=== PATIENT | female | born 1960 | race Caucasian/White ===

== ENCOUNTER 2017-04-01 17:58 | Emergency (ER) | payer OTHER ==
[2017-04-01 18:18] VITALS: BMI 28.7
[2017-04-01 18:19] VITALS: BP 139/81; PULSE 78; RESP 18; TEMP 98; O2SAT 95
--- NOTE | 2017-04-01 19:37 | C.PDOC ---
History Of Present Illness 56 y/o female presents to ED with complaints of left shoulder pain for 3 days. Patient states pain is worse with movement and has taken 400mg of Advil twice daily with no improvement. Patient denies shoulder injury,back pain, chest pain , tingling, numbness or any other complaints at this time. Time Seen by Provider: 04/01/17 19:07 Chief Complaint (Nursing): Upper Extremity Problem/Injury History Per: Patient History/Exam Limitations: no limitations Onset/Duration Of Symptoms: Days Current Symptoms Are (Timing): Still Present Past Medical History Reviewed: Historical Data, Nursing Documentation, Vital Signs Vital Signs: Last Vital Signs Temp 98.0 F 04/01/17 18:18 Pulse 78 04/01/17 18:18 Resp 18 04/01/17 18:18 BP 139/81 04/01/17 18:18 Pulse Ox 95 04/03/17 08:41 - [facility] Procedures DX ULTRASOUND-HEAD/NECK (03/31/13) PERCUTAN NEEDLE BX OF THYROID GLAND (03/31/13) Family History: States: No Known Family Hx - Social History Hx Alcohol Use: No Hx Substance Use: No - Immunization History Hx Tetanus Toxoid Vaccination: No Hx Influenza Vaccination: No Hx Pneumococcal Vaccination: No Review Of Systems Cardiovascular: Negative for: Chest Pain Musculoskeletal: Positive for: Shoulder Pain. Negative for: Neck Pain, Back Pain Skin: Negative for: Rash Neurological: Negative for: Weakness Physical Exam - Physical Exam Appears: Other (Uncomfortable) Skin: Normal Color, Warm Head: Atraumatic, Normacephalic Oral Mucosa: Moist Neck: Normal ROM, No Midline Cervical Tenderness, No Paracervical Tenderness Extremity: No Normal ROM (left, dec rom due to pain), Tenderness (Tendernss to proximal shoulder- left ), Capillary Refill (<2 seconds), No Swelling, Other ( Decreased left shoulder ROM secondary to pain, Full ROM of elbow and wrist) Pulses: Left Radial: Normal, Right Radial: Normal Neurological/Psych: Oriented x3, Normal Speech, Normal Cognition, Normal Motor, Normal Sensation ED Course And Treatment O2 Sat by Pulse Oximetry: 95 (RA) - Other Rad left shoulder X-Ray: Interpreted by Me Progress Note: pt feeling better after toradol and sling, will d/c with med clinic f/u Reassessment Condition: Improved Disposition Counseled Patient/Family Regarding: Studies Performed, Diagnosis, Need For Followup, Rx Given - Disposition Referrals: [facility] [Outside] [facility] [Outside] Disposition: HOME/ ROUTINE Disposition Time: 21:02 Condition: STABLE Additional Instructions: Contine en la clnica mdica. Llamar para un appoimtment, usar la honda por algunos harvey solamente para la comodidad; Use paquetes fros para el hombro varias veces al da. [place] ibupforen segn lo recetado, con alimentos. Trate de refrigerator mover el hombro un poco cada da, si no lo hace, se congelar. Prescriptions: Ibuprofen [Motrin] 600 mg PO TID #30 tab Instructions: Rotator Cuff Injury (ED) Forms: Gen Discharge Inst Nepali Print Language: CHINESE - Clinical Impression Clinical Impression: Shoulder pain, left - Scribe Statement The provider has reviewed the documentation as recorded by the Scribisabel Garcia All medical record entries made by the Lisaibisabel were at my direction and personally dictated by me. I have reviewed the chart and agree that the record accurately reflects my personal performance of the history, physical exam, medical decision making, and the department course for this patient. I have also personally directed, reviewed, and agree with the discharge instructions and disposition.
--- NOTE | 2017-04-02 09:49 | RAD ---
PROCEDURE: Radiographs of the Left Shoulder HISTORY: shoulder pain COMPARISON: None. FINDINGS: BONES: Normal. No fracture. JOINTS: Normal. Glenohumeral and acromioclavicular joints preserved. No osteoarthritis. SOFT TISSUES: Normal. OTHER FINDINGS: None. IMPRESSION: No significant or acute findings to account for/ related to the clinical presentation.
== END 2017-04-01 21:12 | disposition home or self-care (01) ==
LOC: C.ER 17:58
DX: M25.512 Pain in left shoulder (principal)
CPT/HCPCS: 73030; 96372; 99283; J1885

== ENCOUNTER 2017-04-13 14:11 | Emergency (ER) | payer OTHER ==
[2017-04-13 14:11] VITALS: BMI 28.7
[2017-04-13 14:25] VITALS: TEMP 98
--- NOTE | 2017-04-13 15:07 | C.PDOC ---
History Of Present Illness 56 yo female come in for evaluation of Right shoulder pain gradually developed for past few days. Pt describes, pain as constant, aching with intermittent radiation down to Right hand and associated with tingling sensation over dorsal wrist and Right 2nd finger. Pt admits, similar sx few week ago to left shoulder. Otherwise, pt denies fever, chills, headache, dizziness, CP, SOB, dyspnea, diaphoresis, palpitation, abd. pain, N/V, denies weakness, sensory or vascular deficits to B/L UEs. Ambulate to Ed for evaluation, appears in pain. Time Seen by Provider: 04/13/17 14:34 Chief Complaint (Nursing): Upper Extremity Problem/Injury History Per: Patient History/Exam Limitations: no limitations Onset/Duration Of Symptoms: Gradual (Few days) Current Symptoms Are (Timing): Still Present Past Medical History Reviewed: Historical Data, Nursing Documentation, Vital Signs Vital Signs: Last Vital Signs Temp 98 F 04/13/17 14:24 Pulse 68 04/13/17 16:19 Resp 18 04/13/17 16:19 BP 132/78 04/13/17 16:19 Pulse Ox 99 04/13/17 16:19 - [facility] Procedures DX ULTRASOUND-HEAD/NECK (03/31/13) PERCUTAN NEEDLE BX OF THYROID GLAND (03/31/13) Family History: States: No Known Family Hx - Social History Hx Alcohol Use: No Hx Substance Use: No - Immunization History Hx Tetanus Toxoid Vaccination: No Hx Influenza Vaccination: No Hx Pneumococcal Vaccination: No Review Of Systems Except As Marked, All Systems Reviewed And Found Negative. Constitutional: Negative for: Fever, Chills Cardiovascular: Negative for: Chest Pain, Palpitations Respiratory: Negative for: Shortness of Breath Gastrointestinal: Negative for: Nausea, Vomiting, Abdominal Pain Musculoskeletal: Positive for: Shoulder Pain (Right shoulder ), Hand Pain ( Radiating pain to the right hand ) Neurological: Negative for: Weakness, Headache, Dizziness Physical Exam - Physical Exam Appears: Well, Non-toxic, No Acute Distress Skin: Normal Color, Warm, Dry, No Rash Nose: No Flaring, No Discharge Oral Mucosa: Moist Throat: No Erythema, No Drooling Neck: No Midline Cervical Tenderness, Paracervical Tenderness (mild Right tenderness over trapezium muscle with mild muscle spasm,), No Step Off Deformity , Supple, Other ((-) carotid bruits) Chest: Symmetrical, No Deformity, No Tenderness Cardiovascular: Rhythm Regular, No JVD Respiratory: No Stridor, No Wheezing Gastrointestinal/Abdominal: Soft, No Tenderness Back: No Vertebral Tenderness Extremity: Normal ROM, Tenderness (diffuse Right shoulder tenderness more over superior aspect with mod discomfort to Right shoulder abduction and extension. NO palpable deformity, no neurovascular deficits distally.), No Deformity, No Swelling Pulses: Right Radial: Normal DTR: Bicep (R): 2+, Tricep (R): 2+ Neurological/Psych: Oriented x3, Normal Speech, Normal Motor, Normal Sensation, Normal Reflexes ED Course And Treatment O2 Sat by Pulse Oximetry: 98 (RA ) Pulse Ox Interpretation: Normal - Other Rad X-Ray - Cervical Spine X-Ray: Viewed By Me Interpretation: (+)mild DJD, no acute fx or sublux X-Ray - Right Shoulder X-Ray: Viewed By Me Interpretation: (+) mod DJD, no acute fx or dislocation Progress Note: On re-eavluation, pt is afebrile, hemodynamicaly stable. NOn- toxic. Neck: (-) midline tenderness. CVS: (+)S1S2, reg. LUE: exam c/w left shoulder tendonitis. NO deformity, FAROM, no neurovascular deficits. Neurologicaly intact. Xray review and appears normal. Sling applied to Left arm. Pt advised and ref. to F/U with PMD, Orho in 2-3 days for re-eval. Return to ED if any worsening or new changes. Medical Decision Making Medical Decision Making: PLAN: * X-Ray - Cervical Spine, Right Shoulder * Percocet PO * Prednisone PO * Toradol IM Disposition Counseled Patient/Family Regarding: Studies Performed, Diagnosis, Need For Followup, Rx Given - Disposition Referrals: [facility] [place] [Outside] at [facility] [Outside] Disposition: HOME/ ROUTINE Disposition Time: 15:12 Condition: STABLE Additional Instructions: Sling Avoid Left arm lifting Take medication as prescribed Followup with PMD and Ortho in 2-3 days for re-evaluation. Return to ED if and worsening or new changes. Prescriptions: Methocarbamol [Robaxin] 500 mg PO TID #14 tab traMADol [Ultram] 50 mg PO TID #7 tab Instructions: Calcific Tendinitis (ED), Cervical Radiculopathy (ED) Forms: [employer] (Vietnamese), Work Excuse Print Language: MALTESE - Clinical Impression Clinical Impression: Cervical radiculopathy, Shoulder tendonitis - PA / JACKER / Resident Statement MD/DO has reviewed & agrees with the documentation as recorded. - Scribe Statement The provider has reviewed the documentation as recorded by the Scribe Norma Tinoco All medical record entries made by the Lisaibisabel were at my direction and personally dictated by me. I have reviewed the chart and agree that the record accurately reflects my personal performance of the history, physical exam, medical decision making, and the department course for this patient. I have also personally directed, reviewed, and agree with the discharge instructions and disposition.
[2017-04-13] MEDS ORDERED: Oxycodone/Acetaminophen 5/325 mg Tab PO STA (15:12)
[2017-04-13] MEDS ORDERED: Oxycodone/Acetaminophen 5/325 mg Tab ONE (15:24)
--- NOTE | 2017-04-13 15:48 | RAD ---
PROCEDURE: Radiographs of the Right Shoulder HISTORY: pain COMPARISON: None available. FINDINGS: BONES: No acute displaced fracture. The distal clavicle and underlying ribs appear intact. JOINTS: No acute dislocation. Glenohumeral joint space narrowing. SOFT TISSUES: Soft tissues appear unremarkable. No evidence of radiopaque foreign body. IMPRESSION: No acute displaced fracture or dislocation evident. If symptoms persist or if there is continued clinical concern, x-ray follow-up in 7-10 days should be considered.
[2017-04-13 16:19] VITALS: BP 132/78; PULSE 68; RESP 18
--- NOTE | 2017-04-13 16:33 | RAD ---
PROCEDURE: Cervical Spine Radiographs. HISTORY: Pain. COMPARISON: 02/28/2014 FINDINGS: BONES: Minimal cervical lordosis No fracture. Dens Intact. Trace final oasis with limbus vertebrae and/or punctate anterior intervertebral disc calcification -C5-6 level -unchanged DISC SPACES: Space height preserved SOFT TISSUES: Normal. No prevertebral soft tissue swelling. OTHER FINDINGS: None. IMPRESSION: No interval pathology
[2017-04-13 21:41] VITALS: O2SAT 98
== END 2017-04-13 16:20 | disposition home or self-care (01) ==
LOC: C.ER 14:11 → SUPCPDRO 14:11 → C.ER 16:20
DX: M75.91 Shoulder lesion, unspecified, right shoulder (principal); M54.12 Radiculopathy, cervical region
CPT/HCPCS: 72040; 73030; 96372; 99285; J1885

== ENCOUNTER 2017-05-07 19:50 | Emergency (ER) | payer OTHER ==
[2017-05-07 19:51] VITALS: BMI 28.7
[2017-05-07] MEDS ORDERED: Oxycodone/Acetaminophen 5/325 mg Tab PO STA (20:40)
[2017-05-07] MEDS ORDERED: Oxycodone/Acetaminophen 5/325 mg Tab ONE (20:45)
--- NOTE | 2017-05-07 21:38 | C.PDOC ---
History Of Present Illness 56 yr old female presents to the ER with complaints of atraumatic pain to the left wrist for 1 day. Patient denies neck pain, arm pain, weakness or numbness. Time Seen by Provider: 05/07/17 20:15 Chief Complaint (Nursing): Finger,Hand,&Wrist History Per: Patient History/Exam Limitations: no limitations Onset/Duration Of Symptoms: Days (1) Past Medical History Reviewed: Historical Data, Nursing Documentation, Vital Signs Vital Signs: Last Vital Signs Temp 98.0 F 05/07/17 22:29 Pulse 66 05/07/17 22:29 Resp 16 05/07/17 22:29 BP 180/92 H 05/07/17 22:29 Pulse Ox 97 05/07/17 22:29 - [facility] Procedures DX ULTRASOUND-HEAD/NECK (03/31/13) PERCUTAN NEEDLE BX OF THYROID GLAND (03/31/13) Family History: States: No Known Family Hx - Social History Hx Alcohol Use: No Hx Substance Use: No - Immunization History Hx Tetanus Toxoid Vaccination: No Hx Influenza Vaccination: No Hx Pneumococcal Vaccination: No Review Of Systems Except As Marked, All Systems Reviewed And Found Negative. Musculoskeletal: Positive for: Other ((+) Left wrist pain ). Negative for: Neck Pain, Arm Pain Neurological: Negative for: Weakness, Numbness Physical Exam - Physical Exam Appears: Non-toxic, No Acute Distress Skin: Warm, Dry, No Rash Head: Atraumatic, Normacephalic ED Course And Treatment O2 Sat by Pulse Oximetry: 99 (RA ) Pulse Ox Interpretation: Normal Progress Note: XRays of hand and wrist are negative for fractures/litic lesions. Patient to follow up with hand specialist. Volar splint and arm sling were applied by me. Orthopedic Time Out: Side verified Procedure: Splint Type: Short, Volar Location: Left Consent obtained: Verbal Performed by: Mid-level Provider Diagnosis: Other (pain, tendonitis) Location: Left, Volar Medical Decision Making Medical Decision Making: PLAN: * X-Ray - Left Hand, Left Wrist * Percocet PO Disposition - Disposition Referrals: Jessy Phillips MD [Staff Provider] - Disposition: HOME/ ROUTINE Disposition Time: 22:19 Condition: STABLE Additional Instructions: Follow up with PMD and Hand/wrist specialist within 1-2 days. Return to ED if feel worse. 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 - Scribe Statement The provider has reviewed the documentation as recorded by the Scribe Norma Tinoco All medical record entries made by the Lisaibisabel were at my direction and personally dictated by me. I have reviewed the chart and agree that the record accurately reflects my personal performance of the history, physical exam, medical decision making, and the department course for this patient. I have also personally directed, reviewed, and agree with the discharge instructions and disposition.
[2017-05-07 22:30] VITALS: BP 180/92; PULSE 66; RESP 16; TEMP 98
[2017-05-07 23:32] VITALS: O2SAT 99
--- NOTE | 2017-05-08 09:21 | RAD ---
PROCEDURE: Left hand radiographs Left wrist radiographs HISTORY: atraumatic pain COMPARISON: None available. FINDINGS: BONES: No acute displaced fracture. JOINTS: No dislocation. SOFT TISSUES: Unremarkable. No evidence of radiopaque foreign body. OTHER FINDINGS: None. IMPRESSION: No acute displaced fracture, dislocation, or significant joint effusion identified. If symptoms persist, or if there is continued clinical concern, x-ray follow-up in 7-10 days should be considered.
== END 2017-05-07 22:28 | disposition home or self-care (01) ==
LOC: C.ER 19:50
DX: M25.532 Pain in left wrist (principal)
CPT/HCPCS: 29125; 73110; 73130; 96372; 99283; J1885